=== PATIENT | male | born 1960 | race Caucasian/White ===

== ENCOUNTER 2019-06-19 18:53 | Observation (INO) ==
[2019-06-19] MEDS ORDERED: levoFLOXacin 750 MG/150 ML 750 MG/150 ML BAG IVPB ONE (19:08)
[2019-06-19] MEDS ORDERED: cefTRIAXone 1,000 MG in Water for inj. (sterile) 10 ML IVP ONE ×2 (19:08→20:47)
[2019-06-19] MEDS ORDERED: Ondansetron 4 MG/2 ML VIAL IVP ONE (19:25)
[2019-06-19] MEDS ORDERED: Morphine Sulfate 2 MG/ML SYRINGE IVP ONE (19:25)
[2019-06-19] MEDS: 0.9 % Sodium Chloride 1,000 ML IVC SCH ×2 (19:51→20:20)
[2019-06-19 19:58] LABS: Basophils # 0.1 K/mcL (0.0-0.2); Basophils % 0.6 %; Eosinophils # 0.1 K/mcL (0.0-0.6); Eosinophils % 0.6 %; Hematocrit 47.8 % (37.5-50.1); Hemoglobin 16.4 g/dL (12.9-16.9); Lymphocytes # 1.7 K/mcL (0.6-4.6); Lymphocytes % 6.8 %; Mean Corpuscular HGB Conc 34.3 g/dL (31.6-35.5); Mean Corpuscular Hemoglobin 30.9 pg (28.0-33.3); Mean Platelet Volume 10.4 fL (9.4-12.4); Monocytes # 1.1 K/mcL (0.0-1.3); Monocytes % 4.4 %; Neutrophils # 20.9 K/mcL (1.6-8.9); Platelet Count 349 K/mcL (140-400); Red Blood Count 5.31 M/mcL (4.19-5.50); Red Cell Distribution Width 13.5 % (11.5-14.5); Segmented Neutrophils % 86.6 %; White Blood Count 24.1 K/mcL (4.3-11.1)
[2019-06-19 20:00] LABS: VBG PH 7.45 pH Units (7.32-7.42)
[2019-06-19 20:12] LABS: Bilirubin,Urine Negative (Negative); Blood,Urine Trace (Negative); Clarity,Urine Clear (Clear); Color,Urine Yellow (Yellow); Glucose,Urine (UA) Normal (Normal); Ketones,Urine Negative (Negative); Leukocyte Esterase,Urine Trace (Negative); Nitrite,Urine Negative (Negative); PH,Urine 5.5 pH Units (5.0-8.0); Protein,Urine Negative (Neg-Trace); Specific Gravity,Urine 1.019 (1.010-1.025); Urobilinogen,Urine Normal (Normal)
[2019-06-19 20:14] LABS: Bacteria,Urine None Seen per hpf (None-Few); Hyaline Casts,Urine None Seen per lpf (None-Few); RBC,Urine 0-3 per hpf (0-3); Squamous Epithelial Cell,Urine Many per lpf (None-Few)
[2019-06-19 20:20] LABS: Alanine Aminotransferase 63 Units/L (7-52); Albumin 4.7 g/dL (3.5-5.7); Albumin/Globulin Ratio 1.3 (1.1-2.2); Alkaline Phosphatase 84 Units/L (34-104); Aspartate Amino Transferase 47 Units/L (13-39); BUN/Creatinine Ratio 20 (6-26); Bilirubin,Direct 0.2 mg/dL (0.0-0.2); Bilirubin,Indirect 0.6 mg/dL (0.0-1.2); Bilirubin,Total 0.8 mg/dL (0.3-1.0); Blood Urea Nitrogen 18 mg/dL (8-23); Calcium 10.6 mg/dL (8.6-10.3); Carbon Dioxide 21 mEq/L (23-29); Chloride 101 mEq/L (98-107); Globulin 3.5 g/dL (2.4-3.5); Glucose 139 mg/dL (70-105); Magnesium 1.9 mg/dL (1.6-2.6); Osmolality,Calculated 288 (280-300); Potassium 4.1 mEq/L (3.5-5.1); Sodium 137 mEq/L (136-145); Total Protein 8.2 g/dL (6.4-8.9); Troponin I < 0.03 ng/mL (< 0.04); eGFR For African Americans > 60 (> 60); eGFR For Non-African Americans > 60 (> 60)
[2019-06-19] MEDS ORDERED: Azithromycin 500 MG in D5% in Water 250 ML IVPB ONE (20:47)
[2019-06-19] MEDS ORDERED: 0.9 % Sodium Chloride 1,000 ML IVC ONE (21:06)
[2019-06-19] MEDS ORDERED: Ondansetron 4 MG/2 ML VIAL IVP PRN (23:19)
[2019-06-19] MEDS ORDERED: Naloxone 0.4 MG/ML INJ IVP PRN (23:19)
[2019-06-19] MEDS ORDERED: Azithromycin 500 MG in D5% in Water 250 ML IVPB SCH (23:45)
[2019-06-20 01:07] LABS: Influenza A PCR Negative (Negative); Influenza B PCR Negative (Negative)
[2019-06-20] MEDS ORDERED: NON-FORMULARY MEDICATION 1 EACH EACH (Diclofenac Sodium [Voltaren] 1 APPL) TP PRN (01:23)
[2019-06-20] MEDS: *HR* Heparin 5,000 UNIT/ML VIAL SQ SCH ×3 (05:05→21:52)
[2019-06-20 05:58] LABS: Basophils # 0.1 K/mcL (0.0-0.2); Basophils % 0.4 %; Eosinophils # 0.2 K/mcL (0.0-0.6); Eosinophils % 0.9 %; Hematocrit 44.7 % (37.5-50.1); Immature Granulocytes % 0.6 % (0-4); Lymphocytes # 2.4 K/mcL (0.6-4.6); Lymphocytes % 11.5 %; Mean Corpuscular HGB Conc 33.1 g/dL (31.6-35.5); Mean Corpuscular Hemoglobin 31.4 pg (28.0-33.3); Mean Corpuscular Volume 94.9 fL (83.0-100.0); Mean Platelet Volume 10.5 fL (9.4-12.4); Monocytes # 1.3 K/mcL (0.0-1.3); Monocytes % 6.3 %; Neutrophils # 16.9 K/mcL (1.6-8.9); Platelet Count 281 K/mcL (140-400); Red Blood Count 4.71 M/mcL (4.19-5.50); Red Cell Distribution Width 13.4 % (11.5-14.5); Segmented Neutrophils % 80.3 %; White Blood Count 21.1 K/mcL (4.3-11.1)
[2019-06-20 06:01] LABS: Hemoglobin 14.8 g/dL (12.9-16.9)
[2019-06-20 06:06] LABS: INR 1.2; Prothrombin Time 13.1 Seconds (9.4-12.1)
[2019-06-20 06:09] LABS: Activated Partial Thrombo Time 29.1 Seconds (26.0-36.0)
[2019-06-20 06:17] LABS: Alanine Aminotransferase 46 Units/L (7-52); Albumin/Globulin Ratio 1.4 (1.1-2.2); Alkaline Phosphatase 69 Units/L (34-104); Aspartate Amino Transferase 30 Units/L (13-39); BUN/Creatinine Ratio 16 (6-26); Bilirubin,Total 0.9 mg/dL (0.3-1.0); Blood Urea Nitrogen 14 mg/dL (8-23); Calcium 8.9 mg/dL (8.6-10.3); Carbon Dioxide 27 mEq/L (23-29); Chloride 100 mEq/L (98-107); Chol/HDL Ratio 3.6 (0-4.9); Cholesterol 139 mg/dL (< 200); Globulin 2.9 g/dL (2.4-3.5); Glucose 113 mg/dL (70-105); HDL Cholesterol 39 mg/dL (40-59); LDL Cholesterol,Calculated 90 mg/dL (0-99); Magnesium 1.9 mg/dL (1.6-2.6); Osmolality,Calculated 285 (280-300); Phosphorous 3.1 mg/dL (2.7-4.5); Potassium 3.6 mEq/L (3.5-5.1); Sodium 137 mEq/L (136-145); Total Protein 6.9 g/dL (6.4-8.9); Triglycerides 51 mg/dL (< 150); eGFR For African Americans > 60 (> 60); eGFR For Non-African Americans > 60 (> 60)
[2019-06-20] MEDS: Losartan/HCTZ 50-12.5 TABLET PO SCH (08:17)
[2019-06-20] MEDS: Metoprolol XL (24 HR) Succ 50 MG TAB.ER.24H PO SCH ×2 (08:17→21:52)
[2019-06-20] MEDS: amLODIPine 5 MG TABLET PO SCH (08:18)
[2019-06-20] MEDS: Aspirin Enteric Coated 81 MG Tablet PO SCH (08:18)
[2019-06-20] MEDS: aMILoride 5 MG TABLET PO SCH (08:18)
[2019-06-20] MEDS ORDERED: levoFLOXacin 750 MG/150 ML 750 MG/150 ML BAG IVPB SCH ×2 (09:00→20:00)
[2019-06-20] MEDS ORDERED: cefTRIAXone 1,000 MG in Water for inj. (sterile) 10 ML IVP SCH (09:00)
[2019-06-20] MEDS ORDERED: Acetaminophen 325 MG TABLET PO PRN (16:27)
[2019-06-20] MEDS ORDERED: cefTRIAXone 2,000 MG in Water for inj. (sterile) 20 ML IVP SCH (20:00)
[2019-06-20] MEDS ORDERED: Ipratropium/Albuterol Neb 3 ML IH PRN (22:13)
[2019-06-21 05:01] LABS: Hematocrit 46.4 % (37.5-50.1); Hemoglobin 15.6 g/dL (12.9-16.9); Mean Corpuscular HGB Conc 33.6 g/dL (31.6-35.5); Mean Corpuscular Hemoglobin 31.1 pg (28.0-33.3); Mean Corpuscular Volume 92.4 fL (83.0-100.0); Mean Platelet Volume 10.4 fL (9.4-12.4); Platelet Count 291 K/mcL (140-400); Red Blood Count 5.02 M/mcL (4.19-5.50); Red Cell Distribution Width 13.5 % (11.5-14.5); White Blood Count 11.6 K/mcL (4.3-11.1)
[2019-06-21] MEDS: *HR* Heparin 5,000 UNIT/ML VIAL SQ SCH (05:31)
[2019-06-21 07:42] VITALS: BP 118/85
[2019-06-21] MEDS: Metoprolol XL (24 HR) Succ 50 MG TAB.ER.24H PO SCH (08:54)
[2019-06-21] MEDS: aMILoride 5 MG TABLET PO SCH (08:54)
[2019-06-21] MEDS: amLODIPine 5 MG TABLET PO SCH (08:55)
[2019-06-21] MEDS: Losartan/HCTZ 50-12.5 TABLET PO SCH (08:55)
[2019-06-21] MEDS: Aspirin Enteric Coated 81 MG Tablet PO SCH (08:55)
== END 2019-06-21 13:55 | disposition home or self-care (01) ==
LOC: 2NENU 18:53 → EMEROOARM 18:53 → SUATTDRO 21:29 → 2NENU 22:42
PROVIDERS: ADMIT Internal Medicine Nephrology; ATTEND Internal Medicine